=== PATIENT | male | born 1985 | race Caucasian/White ===

== ENCOUNTER 2018-09-09 23:37 | Emergency (ER) | payer OTHER ==
--- NOTE | 2018-09-10 01:27 | ED ---
Psych HPI - General Source: patient Mode of arrival: ambulatory <Nancy Taylor - Last Filed: 09/10/18 04:54> <Anupam Chery - Last Filed: 09/10/18 15:48> - General Chief Complaint: Psychiatric Symptoms Stated Complaint: Suicidal Time Seen by Provider: 09/09/18 23:46 - History of Present Illness Initial Comments: 33-year-old male patient presents to the emergency department today for psychiatric evaluation. Patient states that him and his fiance had a verbal disagreement and ended their relationship this evening. Patient states he has nothing left to live for. When asked if he is suicidal he states, "it doesn't matter any". Patient states he does have a history of bipolar disorder. States he does take medication for this and does take it as directed. States it is not Patient counseling. States he did have a couple of years to drink today. Denies any street drug use. Denies any current physical symptoms or concerns. Patient denies any recent rash, fever, chills, shortness breath, chest pain, abdominal pain, nausea, vomiting, diarrhea, constipation, back pain , numbness, tingling, dizziness, weakness, hematuria, dysuria, urinary urgency, urinary frequency, headache, visual changes, or any other complaints. (Nancy Taylor) - Related Data Home Medications Medication Instructions Recorded Confirmed Brexpiprazole [Rexulti] 2 mg PO HS 09/10/18 09/10/18 Divalproex Sodium [Depakote] 500 mg PO BID 09/10/18 09/10/18 Esomeprazole Magnesium [NexIUM] 20 mg PO DAILY 09/10/18 09/10/18 Allergies Allergy/AdvReac Type Severity Reaction Status Date / Time haloperidol [From Haldol] Allergy Severe seizure Verified 09/10/18 09:05 Review of Systems ROS Other: All systems not noted in ROS Statement are negative. <Nancy Taylor - Last Filed: 09/10/18 04:54> ROS Other: All systems not noted in ROS Statement are negative. <Anupam Chery - Last Filed: 09/10/18 15:48> ROS Statement: Those systems with pertinent positive or pertinent negative responses have been documented in the HPI. Past Medical History Additional Past Medical History / Comment(s): concussions History of Any Multi-Drug Resistant Organisms: None Reported Additional Past Surgical History / Comment(s): colonoscopy, endoscopy, GERD. wisdom teeth. Past Psychological History: Bipolar, Depression Smoking Status: Current some day smoker Past Alcohol Use History: Occasional Past Drug Use History: None Reported <Nancy Taylor - Last Filed: 09/10/18 04:54> General Exam Limitations: no limitations General appearance: alert, in no apparent distress, other (This is a well- developed, well-nourished adult male patient in no acute distress. Vital signs upon presentation are temperature 99.4F, pulse 134, respirations 16, blood pressure 192/104, pulse ox 98% on room air.) Eye exam: Present: normal appearance, PERRL, EOMI. Absent: scleral icterus, conjunctival injection, periorbital swelling Respiratory exam: Present: normal lung sounds bilaterally. Absent: respiratory distress, wheezes, rales, rhonchi, stridor Cardiovascular Exam: Present: regular rate, normal rhythm, normal heart sounds. Absent: systolic murmur, diastolic murmur, rubs, gallop, clicks GI/Abdominal exam: Present: soft, normal bowel sounds. Absent: distended, tenderness, guarding, rebound, rigid Neurological exam: Present: alert, oriented X3, CN II-XII intact Psychiatric exam: Present: agitated, anxious Skin exam: Present: warm, dry, intact, normal color. Absent: rash <Nancy Taylor - Last Filed: 09/10/18 04:54> Course <Nancy Taylor - Last Filed: 09/10/18 04:54> <Anupam Chery - Last Filed: 09/10/18 15:48> Vital Signs 09/09/18 09/10/18 23:38 04:15 Temperature 99.4 F 98.4 F Pulse Rate 134 H 103 H Respiratory 16 20 Rate Blood Pressure 192/104 148/83 O2 Sat by Pulse 98 96 Oximetry - Reevaluation(s) Reevaluation #1: 09/10/18 15:47 The patient has been resting comfortably in the emergency department since yesterday when he arrived. Patient is still depressed. He will be transferred as there is no room in this facility. A clinical certification was told by me. (Anupam Chery) Medical Decision Making - Lab Data Result diagrams: 09/10/18 04:20 09/10/18 04:20 <Nancy Taylor - Last Filed: 09/10/18 04:54> - Lab Data Result diagrams: 09/10/18 04:20 09/10/18 04:20 <Anupam Chery - Last Filed: 09/10/18 15:48> - Medical Decision Making 33-year-old male patient presented to the emergency department today after having a disagreement with his fiance. Patient reported having nothing left to live for. During evaluation he was quite manic with flight of ideas and pressured speech. He was seen and evaluated by emergency psychiatric services, assaults that he would benefit from inpatient admission at this time. We do not have beds on the mental health unit so patient will be transferred. Clinical certificate has been filled out by my attending Dr. Bolaños. (Nancy Taylor) - Lab Data Lab Results 09/10/18 09/10/18 09/10/18 Range/Units 00:50 04:20 04:20 WBC 11.4 H (3.8-10.6) k/uL RBC 5.05 (4.30-5.90) m/uL Hgb 14.6 (13.0-17.5) gm/dL Hct 43.3 (39.0-53.0) % MCV 85.8 (80.0-100.0) fL MCH 29.0 (25.0-35.0) pg MCHC 33.8 (31.0-37.0) g/dL RDW 13.7 (11.5-15.5) % Plt Count 263 (150-450) k/uL Neutrophils % 54 % Lymphocytes % 35 % Monocytes % 7 % Eosinophils % 2 % Basophils % 1 % Neutrophils # 6.2 (1.3-7.7) k/uL Lymphocytes # 4.0 (1.0-4.8) k/uL Monocytes # 0.8 (0-1.0) k/uL Eosinophils # 0.2 (0-0.7) k/uL Basophils # 0.1 (0-0.2) k/uL Sodium 140 (137-145) mmol/L Potassium 4.3 (3.5-5.1) mmol/L Chloride 106 (98-107) mmol/L Carbon Dioxide 24 (22-30) mmol/L Anion Gap 10 mmol/L BUN 12 (9-20) mg/dL Creatinine 0.88 (0.66-1.25) mg/dL Est GFR (CKD-EPI)AfAm >90 (>60 ml/min/1.73 sqM) Est GFR (CKD-EPI)NonAf >90 (>60 ml/min/1.73 sqM) Glucose 104 H (74-99) mg/dL Calcium 9.3 (8.4-10.2) mg/dL Total Bilirubin 0.4 (0.2-1.3) mg/dL AST 27 (17-59) U/L ALT 39 (21-72) U/L Alkaline Phosphatase 68 (38-126) U/L Total Protein 7.0 (6.3-8.2) g/dL Albumin 3.9 (3.5-5.0) g/dL Urine Opiates Screen Not Detected (NotDetected) Ur Oxycodone Screen Not Detected (NotDetected) Urine Methadone Screen Not Detected (NotDetected) Ur Propoxyphene Screen Not Detected (NotDetected) Ur Barbiturates Screen Not Detected (NotDetected) U Tricyclic Antidepress Not Detected (NotDetected) Ur Phencyclidine Scrn Not Detected (NotDetected) Ur Amphetamines Screen Not Detected (NotDetected) U Methamphetamines Scrn Not Detected (NotDetected) U Benzodiazepines Scrn Not Detected (NotDetected) Urine Cocaine Screen Not Detected (NotDetected) U Marijuana (THC) Screen Not Detected (NotDetected) Disposition <Nancy Taylor - Last Filed: 09/10/18 04:54> - Out of Hospital Transfer - Req. Specs Out of Hospital Transfer - Requested Specifics: Psychiatric Non-ICU <Anupam Chery - Last Filed: 09/10/18 15:48> Clinical Impression: Depression Disposition: OTHER INSTITUTION NOT DEFINED Condition: Serious Referrals: None,Stated [Primary Care Provider] - 1-2 days
[2018-09-10 01:57] LABS: Amphetamine Screen,Urine Not Detected (NotDetected); Barbiturate Screen,Urine Not Detected (NotDetected); Benzodiazepines Screen,Urine Not Detected (NotDetected); Cocaine Screen,Urine Not Detected (NotDetected); Methadone Screen, Urine Not Detected (NotDetected); Opiate Screen,Urine Not Detected (NotDetected); Oxycodone Screen, Urine Not Detected (NotDetected); Phencyclidine Screen,Urine Not Detected (NotDetected); Tricyclic Antidepressant,Urine Not Detected (NotDetected); Urn Cannabinoid Scrn Not Detected (NotDetected)
[2018-09-10] MEDS ORDERED: DIVALPROEX ER 500 MG TAB.ER.24H PO STA (02:39)
[2018-09-10] MEDS ORDERED: REXULTI 2 MG PO SCH (04:00)
[2018-09-10 04:16] VITALS: TEMP 98.4
[2018-09-10 04:41] LABS: Basophils # (A) 0.1 k/uL (0-0.2); Basophils % (A) 1 %; Eosinophils # (A) 0.2 k/uL (0-0.7); Eosinophils % (A) 2 %; HCT 43.3 % (39.0-53.0); HGB 14.6 gm/dL (13.0-17.5); Lymphocytes % (A) 35 %; MCHC 33.8 g/dL (31.0-37.0); MCV 85.8 fL (80.0-100.0); Mean Platelet Volume 6.6; Monocytes # (A) 0.8 k/uL (0-1.0); Monocytes % (A) 7 %; Neutrophils # (A) 6.2 k/uL (1.3-7.7); Neutrophils % (A) 54 %; Platelet Count 263 k/uL (150-450); RBC 5.05 m/uL (4.30-5.90); RDW 13.7 % (11.5-15.5); WBC 11.4 k/uL (3.8-10.6)
[2018-09-10 04:50] LABS: ALT 39 U/L (21-72); AST 27 U/L (17-59); Albumin 3.9 g/dL (3.5-5.0); Alkaline Phosphatase 68 U/L (38-126); Anion Gap 10 mmol/L; Blood Urea Nitrogen 12 mg/dL (9-20); Calcium 9.3 mg/dL (8.4-10.2); Carbon Dioxide 24 mmol/L (22-30); Chloride 106 mmol/L (98-107); Glucose 104 mg/dL (74-99); Potassium 4.3 mmol/L (3.5-5.1); Sodium 140 mmol/L (137-145); Total Bilirubin 0.4 mg/dL (0.2-1.3)
[2018-09-10 16:06] VITALS: BP 140/82; PULSE 102; RESP 18
[2018-09-10] MEDS ORDERED: LORazepam 1 MG TAB PO STA (17:08)
== END 2018-09-10 18:21 | disposition other institution (70) ==
LOC: EC 23:37
DX: F31.9 Bipolar disorder, unspecified (principal); R45.851 Suicidal ideations; F17.200 Nicotine dependence, unspecified, uncomplicated; Z79.899 Other long term (current) drug therapy; Z88.8 Allergy status to other drugs, medicaments and biological substances
CPT/HCPCS: 36415; 80053; 80306; 82075; 85025; 99285

== ENCOUNTER 2019-02-24 21:31 | Emergency (ER) | payer OTHER ==
[2019-02-24 21:40] VITALS: BP 153/94; PULSE 111; RESP 17; TEMP 98.1
[2019-02-24 23:19] LABS: Basophils # (A) 0.1 k/uL (0-0.2); Basophils % (A) 1 %; Eosinophils # (A) 0.4 k/uL (0-0.7); Eosinophils % (A) 3 %; HCT 41.5 % (39.0-53.0); HGB 13.9 gm/dL (13.0-17.5); Lymphocytes # (A) 4.3 k/uL (1.0-4.8); Lymphocytes % (A) 41 %; MCH 28.2 pg (25.0-35.0); MCHC 33.5 g/dL (31.0-37.0); MCV 84.1 fL (80.0-100.0); Mean Platelet Volume 7.1; Monocytes # (A) 0.7 k/uL (0-1.0); Monocytes % (A) 7 %; Neutrophils # (A) 4.9 k/uL (1.3-7.7); Neutrophils % (A) 47 %; Platelet Count 290 k/uL (150-450); RBC 4.93 m/uL (4.30-5.90); RDW 14.7 % (11.5-15.5); WBC 10.5 k/uL (3.8-10.6)
[2019-02-24 23:24] LABS: ALT 29 U/L (21-72); AST 32 U/L (17-59); African American GFR (CKD) >90 (>60 ml/min/1.73 sqM); Albumin 4.1 g/dL (3.5-5.0); Alkaline Phosphatase 67 U/L (38-126); Anion Gap 10 mmol/L; Blood Urea Nitrogen 13 mg/dL (9-20); Calcium 8.9 mg/dL (8.4-10.2); Carbon Dioxide 24 mmol/L (22-30); Chloride 106 mmol/L (98-107); Glucose 100 mg/dL (74-99); Sodium 140 mmol/L (137-145); Total Bilirubin 0.4 mg/dL (0.2-1.3); Total Protein 7.3 g/dL (6.3-8.2)
[2019-02-24 23:25] LABS: INR 0.9 (<1.2); Partial Thromboplastin Time 24.5 sec (22.0-30.0); Potassium 4.7 mmol/L (3.5-5.1)
--- NOTE | 2019-02-24 23:58 | CT ---
EXAM: CT Abdomen and Pelvis With Intravenous Contrast CLINICAL HISTORY: CT Reason: abdominal pain TECHNIQUE: Axial computed tomography images of the abdomen and pelvis with intravenous contrast. CTDI is 35.6 mGy and DLP is 1998 mGy-cm. This CT exam was performed using one or more of the following dose reduction techniques: automated exposure control, adjustment of the mA and/or kV according to patient size, and/or use of iterative reconstruction technique. COMPARISON: No relevant prior studies available. FINDINGS: Lung bases: Unremarkable. No mass. No consolidation. ABDOMEN: Liver: Unremarkable. No mass. Gallbladder and bile ducts: Unremarkable. No calcified stones. No ductal dilation. Pancreas: Unremarkable. No mass. No ductal dilation. Spleen: Unremarkable. No splenomegaly. Adrenals: Unremarkable. No mass. Kidneys and ureters: Unremarkable. No solid mass. No hydronephrosis. Stomach and bowel: Unremarkable. No obstruction. No mucosal thickening. PELVIS: Appendix: There are multiple appendicoliths but no enlarged appendix or inflammatory change Bladder: Unremarkable. No mass. Reproductive: Unremarkable as visualized. ABDOMEN and PELVIS: Intraperitoneal space: Unremarkable. No free air. No significant fluid collection. Bones/joints: No acute fracture. No dislocation. Soft tissues: Unremarkable. Vasculature: Unremarkable. No abdominal aortic aneurysm. Lymph nodes: Unremarkable. No enlarged lymph nodes. IMPRESSION: No acute inflammatory process in the abdomen or pelvis. Incidental note is of multiple appendicoliths but no evidence for enlargement of the appendix and no evidence for periappendiceal inflammatory changes
[2019-02-25] MEDS ORDERED: CEPHALEXIN 500 MG CAP PO STA (00:15)
--- NOTE | 2019-02-25 00:20 | ED ---
General Adult HPI - General Chief complaint: Abdominal Pain Stated complaint: Bleeding from belly button Time Seen by Provider: 02/24/19 22:06 Source: patient Mode of arrival: ambulatory - History of Present Illness Initial comments: The patient is a 33-year-old male who presents to the emergency room with reported bleeding from his belly button. The patient admits that his symptoms started today. He woke from his sleep and noted that there was blood on his shirt. He then went to work and later in the day he noted that there has been slight oozing from his umbilicus again. He went to see his doctor who prescribed him Bactrim for possible cellulitis. The patient went to the pharmacy to pickler helper his medication and he was told by the pharmacist that there is a severe interaction with his Geodon. He did not describe the patient the medication. The patient then went to urgent care who directed him to the emergency room and for further evaluation. The patient admits to slight tenderness at his umbilicus. He denies any trauma. He denies any palpable abdominal pain. No reported nausea, vomiting, fevers or chills. He denies any changes in his urination to include dysuria, hematuria or difficulty voiding. He does reports several episodes of loose brown stool today. Denies melanotic stools, hematochezia or constipation. Denies any rectal pain. There are no other alleviating, precipitating or modifying factors - Related Data Home Medications Medication Instructions Recorded Confirmed Divalproex Sodium [Depakote] 1,000 mg PO HS 09/10/18 02/24/19 Esomeprazole Magnesium [NexIUM] 20 mg PO DAILY 09/10/18 02/24/19 LORazepam [Ativan] 1 mg PO HS PRN 02/24/19 02/24/19 Ziprasidone [Geodon] 80 mg PO HS 02/24/19 02/24/19 Previous Rx's Medication Instructions Recorded Cephalexin [Keflex] 500 mg PO Q6HR 7 Days #28 cap 02/25/19 Allergies Allergy/AdvReac Type Severity Reaction Status Date / Time haloperidol [From Haldol] Allergy Severe seizure Verified 02/24/19 21:49 Review of Systems ROS Statement: Those systems with pertinent positive or pertinent negative responses have been documented in the HPI. ROS Other: All systems not noted in ROS Statement are negative. Past Medical History Additional Past Medical History / Comment(s): concussions History of Any Multi-Drug Resistant Organisms: None Reported Additional Past Surgical History / Comment(s): colonoscopy, endoscopy, GERD. wi sdom teeth. Past Psychological History: Bipolar, Depression Smoking Status: Current some day smoker Past Alcohol Use History: Occasional Past Drug Use History: None Reported General Exam General appearance: alert, in no apparent distress Head exam: Present: atraumatic, normocephalic, normal inspection Eye exam: Present: normal appearance, PERRL, EOMI. Absent: scleral icterus, conjunctival injection, periorbital swelling ENT exam: Present: normal exam, mucous membranes moist Neck exam: Present: normal inspection. Absent: tenderness, meningismus, lymphad enopathy Respiratory exam: Present: normal lung sounds bilaterally. Absent: respiratory distress, wheezes, rales, rhonchi, stridor Cardiovascular Exam: Present: regular rate, normal rhythm, normal heart sounds. Absent: systolic murmur, diastolic murmur, rubs, gallop, clicks GI/Abdominal exam: Present: soft, normal bowel sounds. Absent: distended, tenderness, guarding, rebound, rigid Extremities exam: Present: normal inspection, full ROM, normal capillary refill. Absent: tenderness, pedal edema, joint swelling, calf tenderness Back exam: Present: normal inspection Neurological exam: Present: alert, oriented X3, CN II-XII intact Psychiatric exam: Present: normal affect, normal mood Skin exam: Present: warm, dry, intact, normal color. Absent: rash Course Vital Signs 02/24/19 21:36 Temperature 98.1 F Pulse Rate 111 H Respiratory 17 Rate Blood Pressure 153/94 O2 Sat by Pulse 96 Oximetry Medical Decision Making - Medical Decision Making Upon arrival the patient was placed in room 9. His vital signs are noted that he is slightly tachycardic. Exam was performed. I did recommend laboratory studies as well as a CT of the patient's abdomen and pelvis. The patient did agree to the plan. Upon return results are reviewed and discussed with the patient. CT does not demonstrate any signs of an underlying fistula. Physical inspection does not demonstrate any reaccumulation of blood. The patient's hemoglobin stable at this time. I did recommend changing the patient's prescription to Keflex. The patient is provided with a dose while within the emergency room. He will be given a 7 day course of Keflex for possible cellulitis. I did inform the patient that if he has any new or worsening symptoms that he needs to return to the emergency room. He will follow-up with his primary care physician within 2-4 days for reevaluation. The patient agreed to the plan and was discharged home in stable condition - Lab Data Result diagrams: 02/24/19 23:03 02/24/19 23:03 Lab Results 02/24/19 02/24/19 02/24/19 Range/Units 23:03 23:03 23:03 WBC 10.5 (3.8-10.6) k/uL RBC 4.93 (4.30-5.90) m/uL Hgb 13.9 (13.0-17.5) gm/dL Hct 41.5 (39.0-53.0) % MCV 84.1 (80.0-100.0) fL MCH 28.2 (25.0-35.0) pg MCHC 33.5 (31.0-37.0) g/dL RDW 14.7 (11.5-15.5) % Plt Count 290 (150-450) k/uL Neutrophils % 47 % Lymphocytes % 41 % Monocytes % 7 % Eosinophils % 3 % Basophils % 1 % Neutrophils # 4.9 (1.3-7.7) k/uL Lymphocytes # 4.3 (1.0-4.8) k/uL Monocytes # 0.7 (0-1.0) k/uL Eosinophils # 0.4 (0-0.7) k/uL Basophils # 0.1 (0-0.2) k/uL PT 10.0 (9.0-12.0) sec INR 0.9 (<1.2) APTT 24.5 (22.0-30.0) sec Sodium 140 (137-145) mmol/L Potassium 4.7 (3.5-5.1) mmol/L Chloride 106 (98-107) mmol/L Carbon Dioxide 24 (22-30) mmol/L Anion Gap 10 mmol/L BUN 13 (9-20) mg/dL Creatinine 0.84 (0.66-1.25) mg/dL Est GFR (CKD-EPI)AfAm >90 (>60 ml/min/1.73 sqM) Est GFR (CKD-EPI)NonAf >90 (>60 ml/min/1.73 sqM) Glucose 100 H (74-99) mg/dL Calcium 8.9 (8.4-10.2) mg/dL Total Bilirubin 0.4 (0.2-1.3) mg/dL AST 32 (17-59) U/L ALT 29 (21-72) U/L Alkaline Phosphatase 67 (38-126) U/L Total Protein 7.3 (6.3-8.2) g/dL Albumin 4.1 (3.5-5.0) g/dL Disposition Clinical Impression: Umbilicus discharge Disposition: HOME SELF-CARE Condition: Stable Instructions (If sedation given, give patient instructions): Cellulitis (ED) Additional Instructions: Please follow-up with your primary care physician in one to 2 days. Return to the emergency room if you have any new or worsening symptoms. Prescriptions: Cephalexin [Keflex] 500 mg PO Q6HR 7 Days #28 cap Is patient prescribed a controlled substance at d/c from ED?: No Referrals: Srikanth Garza DO [Primary Care Provider] - 1-2 days Time of Disposition: 00:20
== END 2019-02-25 00:58 | disposition home or self-care (01) ==
LOC: EC 21:31
DX: R19.8 Other specified symptoms and signs involving the digestive system and abdomen (principal); R00.0 Tachycardia, unspecified; R58 Hemorrhage, not elsewhere classified; R19.5 Other fecal abnormalities; F17.200 Nicotine dependence, unspecified, uncomplicated; K21.9 Gastro-esophageal reflux disease without esophagitis; F31.9 Bipolar disorder, unspecified; Z79.899 Other long term (current) drug therapy; Z88.8 Allergy status to other drugs, medicaments and biological substances
CPT/HCPCS: 99284; 36415; 80053; 85025; 85610; 85730; 74177; Q9967

== ENCOUNTER 2020-02-06 01:38 | Emergency (ER) | payer OTHER ==
--- NOTE | 2020-02-06 02:32 | XR ---
EXAMINATION TYPE: XR chest 2V DATE OF EXAM: 02/06/2020 COMPARISON: NONE HISTORY: Coughing up blood TECHNIQUE: FINDINGS: Heart and mediastinum are normal. Lungs are clear. Diaphragm is normal. Bony thorax appears normal. IMPRESSION: Normal chest.
--- NOTE | 2020-02-06 02:34 | ED ---
General Adult HPI - General Chief complaint: ENT Stated complaint: Spitting up blood, ingrown toenail Time Seen by Provider: 02/06/20 01:43 Source: patient, RN notes reviewed Mode of arrival: ambulatory Limitations: no limitations - History of Present Illness Initial comments: 34-year-old male presents to the emergency department for a chief complaint of spitting up blood. Patient states that his ALLERGIES have been acting up over the past couple days. Patient states that his girlfriend told him he was snoring very loudly. Patient woke himself up tonight around 1 in the morning. Patient states he spit some blood out of his mouth that was mixed with sputum. Patient was not coughing. Patient did not vomit. Patient also presents requesting "emergency surgery" for an ingrown toenail on the left big toe that has been ongoing for a year. He saw his primary care provider a year ago for this but has not followed up otherwise. Denies fevers or chills. Denies any changes in the toe in the past year.Patient has no other complaints at this time including shortness of breath, chest pain, abdominal pain, nausea or vomiting, headache, or visual changes. - Related Data Home Medications Medication Instructions Recorded Confirmed Divalproex Sodium [Depakote] 1,000 mg PO HS 09/10/18 02/24/19 Esomeprazole Magnesium [NexIUM] 20 mg PO DAILY 09/10/18 02/24/19 LORazepam [Ativan] 1 mg PO HS PRN 02/24/19 02/24/19 Ziprasidone [Geodon] 80 mg PO HS 02/24/19 02/24/19 Previous Rx's Medication Instructions Recorded Cephalexin [Keflex] 500 mg PO Q6HR 7 Days #28 cap 02/25/19 Allergies Allergy/AdvReac Type Severity Reaction Status Date / Time haloperidol [From Haldol] Allergy Severe seizure Verified 02/06/20 01:45 Review of Systems ROS Statement: Those systems with pertinent positive or pertinent negative responses have been documented in the HPI. ROS Other: All systems not noted in ROS Statement are negative. Past Medical History Additional Past Medical History / Comment(s): concussions History of Any Multi-Drug Resistant Organisms: None Reported Additional Past Surgical History / Comment(s): colonoscopy, endoscopy, GERD. wisdom teeth. Past Psychological History: Bipolar, Depression Smoking Status: Current some day smoker Past Alcohol Use History: Occasional Past Drug Use History: None Reported General Exam Limitations: no limitations General appearance: alert, in no apparent distress (Well appearing, sitting up in bed) Head exam: Present: atraumatic, normocephalic, normal inspection Eye exam: Present: normal appearance, PERRL, EOMI. Absent: scleral icterus, conjunctival injection, periorbital swelling ENT exam: Present: normal exam, normal oropharynx (No blood in the posterior oropharynx), mucous membranes moist, TM's normal bilaterally, normal external ear exam Neck exam: Present: normal inspection, full ROM. Absent: tenderness, meningismus, lymphadenopathy Respiratory exam: Present: normal lung sounds bilaterally. Absent: respiratory distress, wheezes, rales, rhonchi, stridor Cardiovascular Exam: Present: regular rate, normal rhythm, normal heart sounds. Absent: systolic murmur, diastolic murmur, rubs, gallop, clicks GI/Abdominal exam: Present: soft, normal bowel sounds. Absent: distended, tenderness, guarding, rebound, rigid Extremities exam: Present: other (Patient has possible ingrown toenail along the medial nail fold of the left great toe. However there is no erythema. There is no purulent material.) Neurological exam: Present: alert Course Vital Signs 02/06/20 01:39 Temperature 98.1 F Pulse Rate 105 H Respiratory 18 Rate Blood Pressure 143/87 O2 Sat by Pulse 96 Oximetry Medical Decision Making - Medical Decision Making Vitals are stable. Patient initially tachycardic which is likely related to anxiety. Chest x-ray shows no acute process. I do suspect patient likely had a small nosebleed possibly related to snoring that caused him to spit out some blood. He has not been coughing or vomiting. Patient will follow up with primary care for this. He will follow up with primary care podiatry for his toenail has been ongoing for 1 year. At this time it does not require antibiotics and there are no signs of infection such as redness, increased warmth, or purulent drainage. Disposition Clinical Impression: Blood in sputum Disposition: HOME SELF-CARE Condition: Good Instructions (If sedation given, give patient instructions): Hemoptysis (ED) Additional Instructions: Please follow up with primary care in 1-2 days. You may follow up with podiatry as well. Return to the emergency room for any worsening symptoms. Is patient prescribed a controlled substance at d/c from ED?: No Referrals: Srikanth Garza DO [Primary Care Provider] - 1-2 days Fransisco Hurt DPM [STAFF PHYSICIAN] - 1-2 days Time of Disposition: 02:33
[2020-02-06 02:54] VITALS: BP 152/86; PULSE 107; RESP 16; TEMP 97.6
== END 2020-02-06 02:54 | disposition home or self-care (01) ==
LOC: EC 01:38
DX: R04.2 Hemoptysis (principal); F31.9 Bipolar disorder, unspecified; K21.9 Gastro-esophageal reflux disease without esophagitis; F17.200 Nicotine dependence, unspecified, uncomplicated; Z79.899 Other long term (current) drug therapy; Z88.8 Allergy status to other drugs, medicaments and biological substances
CPT/HCPCS: 71046; 99283

== ENCOUNTER → 2020-12-03 | Outpatient (CLI) | payer OTHER ==
[2020-12-04 10:40] LABS: T4, Free (Free Thyroxine) 1.1 ng/dL (0.80-1.80)
[2020-12-04 10:46] LABS: Lithium 0.2 mmol/L (0.5-1.2)
== END | disposition home or self-care (01) ==
LOC: LABWHC1 13:49
PROVIDERS: ATTEND Nurse Practitioner Psychiatric/Mental Health
DX: F31.11 Bipolar disorder, current episode manic without psychotic features, mild (principal); F41.1 Generalized anxiety disorder
CPT/HCPCS: 36415; 80178; 84439; 84443; 84481

== ENCOUNTER 2021-01-05 22:58 | Emergency (ER) | payer OTHER ==
[2021-01-05 23:07] VITALS: TEMP 98.3
--- NOTE | 2021-01-06 00:06 | ED ---
Psych HPI - General Chief Complaint: Psychiatric Symptoms Stated Complaint: Mental Health Time Seen by Provider: 01/05/21 23:09 Source: patient, police Mode of arrival: ambulatory - History of Present Illness Initial Comments: This patient is 35-year-old man who is brought to the emergency department after an interaction with local law enforcement. The patient reportedly had been having an argument with his girlfriend. A bystander called 911 and when law enforcement arrived, the patient resisted interacting with them. Because of this, he is brought here to have psychiatric evaluation. The patient is denying homicidal or suicidal ideation. He states that he has had history of bipolar disorder and has not been on his medications. Does complain of some racing thoughts. MD Complaint: other Onset/Timin -: hour(s) Associated Psychiatric Symptoms: racing thoughts History of same: Yes Quality: other Improves With: none Worsens With: none Context: not taking psychiatric medications, significant life stressor - Related Data Home Medications Medication Instructions Recorded Confirmed Divalproex Sodium [Depakote] 1,000 mg PO HS 09/10/18 02/24/19 Esomeprazole Magnesium [NexIUM] 20 mg PO DAILY 09/10/18 02/24/19 LORazepam [Ativan] 1 mg PO HS PRN 02/24/19 02/24/19 Ziprasidone [Geodon] 80 mg PO HS 02/24/19 02/24/19 Previous Rx's Medication Instructions Recorded Cephalexin [Keflex] 500 mg PO Q6HR 7 Days #28 cap 02/25/19 Allergies Allergy/AdvReac Type Severity Reaction Status Date / Time haloperidol [From Haldol] Allergy Severe seizure Verified 01/05/21 23:07 Review of Systems ROS Statement: Those systems with pertinent positive or pertinent negative responses have been documented in the HPI. ROS Other: All systems not noted in ROS Statement are negative. Constitutional: Denies: fever, chills Respiratory: Denies: cough, dyspnea Cardiovascular: Denies: chest pain, palpitations Gastrointestinal: Denies: abdominal pain, vomiting, diarrhea Genitourinary: Denies: dysuria Musculoskeletal: Denies: back pain Skin: Denies: rash Neurological: Denies: headache, weakness, numbness Psychiatric: Reports: anxiety. Denies: depression, auditory hallucinations, visual hallucinations, homicidal thoughts, suicidal thoughts Past Medical History Additional Past Medical History / Comment(s): concussions x3 History of Any Multi-Drug Resistant Organisms: None Reported Additional Past Surgical History / Comment(s): colonoscopy, endoscopy, GERD. wis dom teeth. Past Psychological History: Bipolar, Depression Smoking Status: Former smoker Past Alcohol Use History: Occasional Past Drug Use History: None Reported General Exam Limitations: no limitations General appearance: alert, in no apparent distress Head exam: Present: atraumatic, normocephalic Eye exam: Present: normal appearance. Absent: scleral icterus, conjunctival injection Respiratory exam: Present: normal lung sounds bilaterally. Absent: respiratory distress, wheezes, rales, rhonchi, stridor Cardiovascular Exam: Present: regular rate, normal rhythm, normal heart sounds. Absent: systolic murmur, diastolic murmur, rubs, gallop GI/Abdominal exam: Present: soft. Absent: distended, tenderness, guarding, rebound, rigid, mass Extremities exam: Present: normal inspection, normal capillary refill Back exam: Present: normal inspection Neurological exam: Present: alert, normal gait Skin exam: Present: warm, dry, intact, normal color. Absent: rash Course Vital Signs 01/05/21 23:02 Temperature 98.3 F Pulse Rate 121 H Respiratory 18 Rate Blood Pressure 155/99 O2 Sat by Pulse 94 L Oximetry Disposition Clinical Impression: Mood disorder Disposition: HOME SELF-CARE Condition: Good Instructions (If sedation given, give patient instructions): Mood Disorders (ED) Is patient prescribed a controlled substance at d/c from ED?: No Referrals: Nonstaff,Physician [Primary Care Provider] - 1-2 days
[2021-01-06 01:59] VITALS: BP 178/82; PULSE 94; RESP 16
== END 2021-01-06 02:00 | disposition home or self-care (01) ==
LOC: EC 22:58
DX: F39 Unspecified mood [affective] disorder (principal); K21.9 Gastro-esophageal reflux disease without esophagitis; Z87.891 Personal history of nicotine dependence; Z79.899 Other long term (current) drug therapy; Z88.8 Allergy status to other drugs, medicaments and biological substances
CPT/HCPCS: 82075; 99284